=== PATIENT | male | born 1965 | race Hispanic/Latino ===

== ENCOUNTER 2016-10-15 09:30 | Inpatient (IN) | payer MEDICAID ==
[~2016-10-15] VITALS: Ht 170.2 cm; Wt 90.8 kg
[2016-11-28 10:37] VITALS: BMI 31.3
[2016-11-28 11:19] VITALS: BP_SYST 122; RESP 20; TEMP 99
[2016-12-10] VITALS (23 sets, daily range): BP systolic 105–140; RESP 12–20; TEMP 97–99.2; Ht 170.2 cm; Wt 90.8 kg
[2016-12-10] MEDS ORDERED: Tranexamic Acid 100 MG in SODIUM CHLORIDE 0.9% 100 ML IV ONE ×4 (08:00)
[2016-12-10] MEDS ORDERED: TRANEXAMIC ACID IV ONE ×4 (08:00)
[2016-12-10] MEDS ORDERED: SODIUM CHLORIDE 0.9% IV ONE ×4 (08:00)
[2016-12-10] MEDS ORDERED: CEFAZOLIN 2,000 MG in SODIUM CHLORIDE 0.9% 100 ML IV ONE (08:15)
[2016-12-10] MEDS ORDERED: ROPIVACAINE 0.5% 139 MG, EPINEPHrine 1:1,000 0.2 MG, KETOROLAC INJ 30 MG, MORPHINE 10 MG SUBQ ONE ×4 (08:15)
[2016-12-10] MEDS ORDERED: ONDANSETRON 4 MG VIAL IV ONE (08:50)
[2016-12-10] MEDS ORDERED: MEPERIDINE 25 MG/ML IV ONE (08:50)
[2016-12-10] MEDS ORDERED: GLYCOPYRROLATE 0.2 MG/ML VIAL IV ONE (08:50)
[2016-12-10] MEDS ORDERED: LIDOCAINE 1% BUFFERED 1 ML SYR INTRADERM PRN (08:50)
[2016-12-10] MEDS ORDERED: LACT RINGERS 1,000 ML IV SCH (08:50)
[2016-12-10] MEDS ORDERED: FAMOTIDINE 20 MG INJ IV ONE (08:50)
[2016-12-10] MEDS ORDERED: METOCLOPRAMIDE 10 MG/2 ML VIAL IV PUSH ONE (08:50)
[2016-12-10] MEDS ORDERED: MIDAZOLAM 2 MG/2 ML INJ IV ONE (08:50)
[2016-12-10] MEDS ORDERED: DILAUDID 1 MG/ML AMP IV PRN (11:05)
[2016-12-10] MEDS ORDERED: MORPHINE 2 MG/ML SYR IV PRN (11:05)
[2016-12-10] MEDS ORDERED: OXYCODONE 5 MG TAB PO PRN (11:05)
[2016-12-10] MEDS ORDERED: MORPHINE 4 MG/ML SYR IV PRN (11:05)
[2016-12-10] MEDS ORDERED: ONDANSETRON 4 MG VIAL IV PRN ×2 (11:05→12:20)
[2016-12-10] MEDS ORDERED: MEPERIDINE 25 MG/ML IV PRN (11:05)
[2016-12-10] MEDS ORDERED: MAG HYDROX 30 ML UDC PO PRN (12:20)
[2016-12-10] MEDS ORDERED: D5-1/2-NS W/KCL 20MEQ/L 1,000 ML IV SCH (12:20)
[2016-12-10] MEDS ORDERED: SALINE FLUSH 10 ML FLUSH PRN (12:20)
[2016-12-10] MEDS ORDERED: ONDANSETRON 4 MG TAB PO PRN (12:20)
[2016-12-10] MEDS ORDERED: NITROGLYCERIN SL 0.4 MG TAB SL SCH (13:50)
[2016-12-10] MEDS ORDERED: NEB-XOPENEX 0.63 MG/3 ML INH PRN (13:50)
[2016-12-10] MEDS ORDERED: DEXAMETHASONE 4 MG/ML VIAL IV ONE (14:00)
[2016-12-10] MEDS ORDERED: ONDANSETRON 4 MG VIAL IV PUSH ONE (14:00)
[2016-12-10] MEDS ORDERED: SUCCINYLCHOLINE 20 MG/ML VL IV ONE (14:00)
[2016-12-10] MEDS ORDERED: LIDOCAINE 2% SYR 5 ML IV ONE (14:00)
[2016-12-10] MEDS ORDERED: PROPOFOL 20 ML PER ML IV ONE (14:00)
[2016-12-10] MEDS ORDERED: ROCURONIUM 50 MG VIAL IV ONE (14:00)
[2016-12-10] MEDS ORDERED: FENTANYL 100 MCG/2 ML AMP IV ONE (14:00)
[2016-12-10] MEDS: AMITRIPTYLINE 50 MG TAB PO SCH ×2 (14:02→21:22)
[2016-12-10] MEDS: SERTRALINE 100 MG TAB PO SCH (14:03)
[2016-12-10] MEDS ORDERED: BUPIVACA/EPI 0.5% 50ML EPIDURAL ONE (14:04)
[2016-12-10] MEDS ORDERED: LIDOCAINE 1% 20ML NERVEBLOCK ONE (14:04)
[2016-12-10] MEDS ORDERED: BACITRACIN 50,000 UNITS INJ IRRIG ONE (14:23)
[2016-12-10] MEDS: KETOROLAC 30 MG/ML VIAL IV PRN (14:42)
[2016-12-10] MEDS: CEFAZOLIN 2,000 MG in SODIUM CHLORIDE 0.9% 100 ML IV SCH ×2 (15:36→21:26)
[2016-12-10] MEDS: GABAPENTIN 400 MG CAP PO SCH ×2 (16:05→21:21)
[2016-12-10] MEDS: MORPHINE 2 MG/ML SYR IV PRN (18:54)
[2016-12-10] MEDS: SALINE FLUSH 10 ML FLUSH SCH (19:58)
[2016-12-10] MEDS: PANTOPRAZOLE 40 MG TAB PO SCH (21:21)
[2016-12-10] MEDS: SENNA 8.6 MG TAB PO SCH (21:21)
[2016-12-10] MEDS: Atorvastatin 20 MG TAB PO SCH (21:21)
[2016-12-10] MEDS: DOCUSATE SOD 100 MG CAP PO SCH (21:22)
[2016-12-11] VITALS (8 sets, daily range): BP systolic 102–133; RESP 12–18; TEMP 97.2–98.6
[2016-12-11] MEDS: CEFAZOLIN 2,000 MG in SODIUM CHLORIDE 0.9% 100 ML IV SCH ×2 (03:56→09:48)
[2016-12-11] MEDS: MORPHINE 2 MG/ML SYR IV PRN ×2 (05:21→19:11)
[2016-12-11] MEDS: FONDAPARINUX 2.5 MG SYR SUBQ SCH (05:24)
[2016-12-11] MEDS: SODIUM CHLORIDE 0.9% FLUSH BAG 500 ML IV SCH (05:24)
[2016-12-11] MEDS: POLYETHYLENE GLYCOL 17 GM PACKET PO SCH (08:25)
[2016-12-11] MEDS: SENNA 8.6 MG TAB PO SCH ×2 (08:25→20:59)
[2016-12-11] MEDS: AMITRIPTYLINE 50 MG TAB PO SCH ×2 (08:25→20:59)
[2016-12-11] MEDS: GABAPENTIN 400 MG CAP PO SCH ×3 (08:25→20:59)
[2016-12-11] MEDS: SERTRALINE 100 MG TAB PO SCH (08:25)
[2016-12-11] MEDS: DOCUSATE SOD 100 MG CAP PO SCH ×2 (08:25→20:59)
[2016-12-11] MEDS: MAG HYDROX 30 ML UDC PO SCH (08:26)
[2016-12-11] MEDS: SALINE FLUSH 10 ML FLUSH SCH ×2 (08:26→20:59)
[2016-12-11] MEDS: KETOROLAC 30 MG/ML VIAL IV PRN ×2 (09:48→14:23)
[2016-12-11] MEDS ORDERED: FLEET ENEMA 132 ML BTL RECTAL PRN (15:20)
[2016-12-11] MEDS ORDERED: BISACODYL 10 MG SUPP RECTAL PRN (15:20)
[2016-12-11] MEDS: Atorvastatin 20 MG TAB PO SCH (20:59)
[2016-12-11] MEDS: PANTOPRAZOLE 40 MG TAB PO SCH (20:59)
[2016-12-11] MEDS: ZOLPIDEM 5 MG TAB PO PRN (21:05)
[2016-12-12] MEDS: KETOROLAC 30 MG/ML VIAL IV PRN ×3 (03:00→21:19)
[2016-12-12] MEDS: FONDAPARINUX 2.5 MG SYR SUBQ SCH (06:00)
[2016-12-12] MEDS: SODIUM CHLORIDE 0.9% FLUSH BAG 500 ML IV SCH (06:00)
[2016-12-12] MEDS ORDERED: OXYCODONE/APAP 7.5/325 TAB PO PRN ×2 (07:20→07:25)
[2016-12-12 08:15] VITALS: BP_SYST 118; RESP 20; TEMP 99.7
[2016-12-12] MEDS: MAG HYDROX 30 ML UDC PO SCH (09:48)
[2016-12-12] MEDS: POLYETHYLENE GLYCOL 17 GM PACKET PO SCH (09:48)
[2016-12-12] MEDS: GABAPENTIN 400 MG CAP PO SCH ×3 (09:49→21:20)
[2016-12-12] MEDS: AMITRIPTYLINE 50 MG TAB PO SCH ×2 (09:49→21:20)
[2016-12-12] MEDS: DOCUSATE SOD 100 MG CAP PO SCH ×2 (09:49→21:20)
[2016-12-12] MEDS: SENNA 8.6 MG TAB PO SCH ×2 (09:49→21:20)
[2016-12-12] MEDS: SERTRALINE 100 MG TAB PO SCH ×2 (09:50→13:40)
[2016-12-12] MEDS: SALINE FLUSH 10 ML FLUSH SCH ×2 (09:52→20:00)
[2016-12-12] MEDS: OXYCODONE/APAP 7.5/325 TAB PO PRN ×2 (11:22→15:25)
[2016-12-12 12:06] VITALS: BP_SYST 133; RESP 20; TEMP 99.6
[2016-12-12 15:44] VITALS: BP_SYST 123; RESP 20; TEMP 96.1
[2016-12-12 19:29] VITALS: BP_SYST 142; RESP 18; TEMP 97.2
[2016-12-12] MEDS: MORPHINE 4 MG/ML SYR IV PRN ×2 (19:54→21:17)
[2016-12-12] MEDS: PANTOPRAZOLE 40 MG TAB PO SCH (21:20)
[2016-12-12] MEDS: Atorvastatin 20 MG TAB PO SCH (21:20)
[2016-12-12] MEDS: ZOLPIDEM 5 MG TAB PO PRN (21:21)
[2016-12-12 22:33] VITALS: BP_SYST 126; RESP 18; TEMP 97.5
[2016-12-13] MEDS: MORPHINE 4 MG/ML SYR IV PRN ×4 (00:42→07:00)
[2016-12-13] MEDS: OXYCODONE/APAP 7.5/325 TAB PO PRN ×2 (03:22→09:00)
[2016-12-13 03:33] VITALS: BP_SYST 129; RESP 18; TEMP 99.3
[2016-12-13] MEDS: FONDAPARINUX 2.5 MG SYR SUBQ SCH (05:12)
[2016-12-13] MEDS: KETOROLAC 30 MG/ML VIAL IV PRN (05:13)
[2016-12-13] MEDS: SODIUM CHLORIDE 0.9% FLUSH BAG 500 ML IV SCH (06:00)
[2016-12-13 07:32] VITALS: BP_SYST 132; RESP 18; TEMP 97.7
[2016-12-13] MEDS: SALINE FLUSH 10 ML FLUSH SCH (08:00)
[2016-12-13] MEDS: POLYETHYLENE GLYCOL 17 GM PACKET PO SCH (08:57)
[2016-12-13] MEDS: SERTRALINE 100 MG TAB PO SCH (08:58)
[2016-12-13] MEDS: MAG HYDROX 30 ML UDC PO SCH (08:58)
[2016-12-13] MEDS: DOCUSATE SOD 100 MG CAP PO SCH (08:58)
[2016-12-13] MEDS: GABAPENTIN 400 MG CAP PO SCH (08:58)
[2016-12-13] MEDS: SENNA 8.6 MG TAB PO SCH (08:59)
[2016-12-13] MEDS: AMITRIPTYLINE 50 MG TAB PO SCH (08:59)
[2016-12-13 11:57] VITALS: BP_SYST 128; RESP 16; TEMP 97.5
[2016-12-13 11:59] VITALS: BP_SYST 128; RESP 16; TEMP 97.5
== END 2016-12-13 12:35 | disposition home health service (06) | DRG 470 ==
LOC: ENRESERVTM → ENRESERVDT → SDS 12-10 08:08 → ENPENDDIS 12-10 08:08 → 2NO 12-10 13:01
PROVIDERS: ADMIT Internal Medicine; ATTEND Internal Medicine
PROC: 3E0T3CZ (ICD-10-PCS; 2016-12-10)
PROC: 0SRC0J9 Replacement of Right Knee Joint with Synthetic Substitute, Cemented, Open Approach (ICD-10-PCS; principal; 2016-12-10 09:49)
DX: M17.11 Unilateral primary osteoarthritis, right knee (principal); I10 Essential (primary) hypertension; J44.9 Chronic obstructive pulmonary disease, unspecified; F41.9 Anxiety disorder, unspecified; Z72.0 Tobacco use
CPT/HCPCS: 80048; 85014; 85018; 85025; 86850; 86900; 86901; 94762; 94799